=== PATIENT | female | born 1985 | race Caucasian/White ===

== ENCOUNTER 2020-02-29 05:11 | Emergency (ER) | payer SELFPAY ==
[~2020-02-29] VITALS: Ht 165.1 cm; Wt 59.0 kg
[2020-02-29] MEDS ORDERED: DOC250 PO (06:07)
== END 2020-02-29 06:45 | disposition home or self-care (01) ==
LOC: ER 05:11
DX: K59.00 Constipation, unspecified (principal)
CPT/HCPCS: 99283